=== PATIENT | male | born 1990 | race American Indian/Alaskan Native ===

== ENCOUNTER 2022-03-05 19:46 | Emergency (ER) | payer BC ==
[2022-03-05] MEDS ORDERED: ONDANSETRON 4 MG ODT TAB PO ONE (20:39)
[2022-03-05] MEDS ORDERED: TETANUS,DIPH,PERTUSS(ACELL) VACCINE 0.5 ML SYRINGE IM ONE (20:39)
[2022-03-05] MEDS ORDERED: IBUPROFEN 600 MG TAB PO ONE (20:39)
[2022-03-05] MEDS ORDERED: LIDOCAINE (1%) 10 MG/1 ML VIAL 20 ML MDV INFILTRATI ONE (20:39)
--- NOTE | 2022-03-05 20:52 | XRay Report ---
LEFT HAND 3 VIEW(S) INDICATION / CLINICAL INFORMATION: left hand laceration. laceration from box feeder at work x 1 hr; m ajority of laceration on backside of hand, base of 4th digit; when attempting to perform the lateral image, pat.'s 4th digit kept flexing forward involuntarily; had to use tongue depressor to put 4th di git into position COMPARISON: None available. FINDINGS: BONES / JOINT(S): Minimally displaced fracture of the ulnar aspect of the base of the proximal phalan x of the left index finger possibly due to laceration. No additional fracture. No significant arthrit is. Incidental note of lunotriquetral coalition, a normal anatomic variant. SOFT TISSUES: Soft tissue laceration on the dorsal aspect of the proximal little and ring fingers. ADDITIONAL FINDINGS: None. IMPRESSION: 1. Soft tissue laceration on the dorsal aspect of the little and ring fingers with underlying fractur e/bony laceration of the base of the proximal phalanx. 2. Given the history of flexion deformity of the 4th digit, ring finger extensor tendon injury should be considered. Signer Name: Haily Curry MD Signed: 03/05/2022 8:47 PM Workstation Name: [id number]
--- NOTE | 2022-03-05 22:42 | Emergency Department Report ---
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 Patient states that the bleeding is well controlled at this time but that he is unable to extend his left ring finger due to pain and suspect that he may have injured his tendons. Patient states that he is not up-to-date with his tetanus vaccinations. Patient denies fall, nausea and vomiting, syncope, chest pain or shortness of breath, numbness and tingling or weakness of left hand or lightheadedness. MD Complaint: Injury to:: left, hand (left hand injury, laceration) -: Sudden, hour(s) (2) Other Extremity Injury: Hand: Left (laceration of dorsal left hand) Other Injuries: none Place: home Severity scale (0 -10): 7 Improves With: none Worsens With: movement of extremity Context: direct blow, laceration, injury Associated Symptoms: denies other symptoms. denies: weakness, numbness, neck pain, suspects foreign body, nausea/vomiting, heard/felt popping sensat Treatments Prior to Arrival: bandage - Related Data Previous Rx's Medication Instructions Recorded Last Taken Type HYDROcodone/APAP 5-325 [Addison 1 each PO Q6HR PRN #12 tablet 03/06/22 Unknown Rx 5/325] Ibuprofen [Motrin] 800 mg PO Q8HR PRN #30 tablet 03/06/22 Unknown Rx cephALEXin [Keflex] 500 mg PO Q8HR #30 cap 03/06/22 Unknown Rx Allergies Allergy/AdvReac Type Severity Reaction Status Date / Time No Known Allergies Allergy Verified 03/05/22 20:46 ED Review of Systems ROS: Stated complaint: LEFT HAND LACERATION Other details as noted in HPI Constitutional: denies: chills, fever Eyes: denies: eye pain, eye discharge, vision change ENT: denies: ear pain, throat pain Respiratory: denies: cough, shortness of breath, wheezing Cardiovascular: denies: chest pain, palpitations Endocrine: no symptoms reported Gastrointestinal: denies: abdominal pain, nausea, vomiting, diarrhea Genitourinary: denies: urgency, dysuria Musculoskeletal: arthralgia (Left hand pain due to a bleeding extensive dorsal left hand laceration wound). denies: back pain, joint swelling Skin: other (Bleeding dorsal left hand laceration wound). denies: rash, lesions Neurological: denies: headache, weakness, paresthesias Psychiatric: denies: anxiety, depression Hematological/Lymphatic: denies: easy bleeding, easy bruising ED Past Medical Hx - Past Medical History Previous Medical History?: No - Surgical History Past Surgical History?: No - Social History Smoking Status: Never Smoker - Medications Home Medications: Home Medications Medication Instructions Recorded Confirmed Last Taken Type HYDROcodone/APAP 5-325 [Addison 1 each PO Q6HR PRN #12 tablet 03/06/22 Unknown Rx 5/325] Ibuprofen [Motrin] 800 mg PO Q8HR PRN #30 tablet 03/06/22 Unknown Rx cephALEXin [Keflex] 500 mg PO Q8HR #30 cap 03/06/22 Unknown Rx ED Physical Exam - General Limitations: No Limitations General appearance: alert, in no apparent distress - Head Head exam: Present: atraumatic, normocephalic, normal inspection - Eye Eye exam: Present: normal appearance, PERRL, EOMI Pupils: Present: normal accommodation - ENT ENT exam: Present: normal exam, normal orophraynx, mucous membranes moist, TM's normal bilaterally, normal external ear exam - Neck Neck exam: Present: normal inspection, full ROM. Absent: tenderness - Respiratory Respiratory exam: Present: normal lung sounds bilaterally. Absent: respiratory distress, wheezes, rales, stridor, chest wall tenderness, accessory muscle use, decreased breath sounds, prolonged expiratory - Cardiovascular Cardiovascular Exam: Present: regular rate, normal rhythm, normal heart sounds. Absent: systolic murmur, diastolic murmur, rubs, gallop - GI/Abdominal GI/Abdominal exam: Present: soft, normal bowel sounds. Absent: tenderness, guarding, rebound, hyperactive bowel sounds, hypoactive bowel sounds, organomegaly - Extremities Exam Extremities exam: Present: normal inspection, tenderness (Palpable left hand tenderness due to a 7 cm dorsal left hand laceration with gross extensor tendon abnormality of left ring finger), normal capillary refill. Absent: full ROM (Limited range of motion left hand due to pain), pedal edema, joint swelling, calf tenderness - Back Exam Back exam: Present: normal inspection, full ROM. Absent: tenderness, CVA tenderness (R), CVA tenderness (L), muscle spasm, paraspinal tenderness, vertebral tenderness - Neurological Exam Neurological exam: Present: alert, oriented X3, CN II-XII intact, normal gait, reflexes normal - Psychiatric Psychiatric exam: Present: normal affect, normal mood - Skin Skin exam: Present: warm, dry, intact, normal color, other (Bleeding dorsal left hand 7 cm laceration wound with possible extensor tendon injury on the left ring finger). Absent: rash ED Course Vital Signs 03/05/22 03/05/22 19:50 21:04 Temperature 98.6 F Pulse Rate 81 Respiratory 18 Rate - Laceration /Wound Repair Left Dorsal Hand Wound Location: upper extremity (dorsal left hand laceration) Wound Length (cm): 7 Wound's Depth, Shape: into muscle, linear Wound Explored: contaminated Irrigated w/ Saline (ccs): 300 Betadine Prep?: Yes Anesthesia: 1% Lidocaine Volume Anesthetic (ccs): 8 Wound Debrided: extensive Wound Repaired With: sutures Suture Size/Type: 4:0, proline Number of Sutures: 17 Layer Closure?: Yes Deep Layer Suture Size/Type: 4:0, chromic Number Deep Layer Sutures: 4 Sterile Dressing Applied?: Yes Progress: The wound was cleaned extensively with normal saline and Betadine solutions. Lidocaine 1% solution was used as a digital block for local anesthesia, a total of 8 cc was used around the wound. When anesthesia was fully achieved, the wound was sutured per protocol using Prolene 3-0 sutures for external suture repair, for a total of 17 sutures, and also used chromic 4-0 sutures for internal tendon injury for a total of 4 sutures. The wound was then cleaned extensively normal saline and wound dressed with 4 x 4 gauze and Kerlix. The patient tolerated the procedure well. The left ring finger fracture was splinted with a finger splint. Patient was therefore discharged home on pain medications and antibiotics, and was given a referral to the orthopedic surgeon due to a possible tendon injury. Patient was advised to contact Dr. Baugh's office first thing the morning on Saturday, March 26, 2022 to schedule a follow-up appointment. Patient was advised to return to the ED immediately if symptoms get worse. ED Medical Decision Making - Radiology Data Radiology results: report reviewed, image reviewed [facility] [address] [place] [address] XRay Report Signed Patient: EARL HERNANDEZ R#: [id number] : 1990 Acct:[id number] Age/Sex: 31 / M ADM Date: 03/05/22 Loc: ED Attending Dr: Ordering Physician: BONNIE ROCHA Date of Service: 03/05/22 Procedure(s): XR hand 2V LT Accession Number(s): [id number] cc: BONNIE ROCHA Fluoro Time In Minutes: LEFT HAND 3 VIEW(S) INDICATION / CLINICAL INFORMATION: left hand laceration. 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 FINDINGS: BONES / JOINT(S): Minimally displaced fracture of the ulnar aspect of the base of the proximal phalanx of the left index finger possibly due to laceration. No additional fracture. No significant arthritis. Incidental note of lunotriquetral coalition, a normal anatomic variant. SOFT TISSUES: Soft tissue laceration on the dorsal aspect of the proximal li ttle and ring fingers. ADDITIONAL FINDINGS: None. IMPRESSION: 1. Soft tissue laceration on the dorsal aspect of the little and ring fingers with underlying fracture/bony laceration of the base of the proximal phalanx. 2. Given the history of flexion deformity of the 4th digit, ring finger extensor tendon injury should be considered. Signer Name: Hialy Curry MD Signed: 03/05/2022 8:47 PM Workstation Name: [id number] Transcribed By: DT Dictated By: José Antonio Curry MD Electronically Authenticated By: José Antonio Curry MD Signed Date/Time: 03/05/222046 DD/ 2044 TD/TT: Print Cancel - Medical Decision Making This is a 31-year-old -[place] male with no past medical history presents to the ED with complaint of acute onset left hand pain due to an extensive dorsal left hand laceration wound with left ring finger extension limitations due to a suspected tendon injury after a box spring frame builder that he was using to cut certain boxes accidentally cut his dorsal left right hand extending from the middle dorsal left hand to the left small finger about 2 hours ago. Patient states that the bleeding is well controlled at this time but that he is unable to extend his left ring finger due to pain and suspect that he may have injured his tendons. Patient states that he is not up-to-date with his tetanus vaccinations. In the ED, patient is alert and oriented x3 and is not in distress but appears to be in pain. Patient was treated for pain in the ED, and also received booster tetanus vaccinations. Left hand x-ray showed soft tissue laceration on the dorsal aspect of the little and ring fingers with underlying fracture/bony laceration of the base of the proximal phalanx. In addition given the history of flexion deformity of the 4th digit, ring finger extensor tendon injury should be considered. Patient was also treated in the ED with Ancef 1 g intramuscular injection prophylactic for suspected open fracture. The wound was cleaned extensively with normal saline and Betadine solutions. Lidocaine 1% solution was used as a digital block for local anesthesia, a total of 8 cc was used around the wound. When anesthesia was fully achieved, the wound was sutured per protocol using Prolene 3-0 sutures for external suture repair, for a total of 17 sutures, and also used chromic 4-0 sutures for internal tendon injury for a total of 4 sutures. The wound was then cleaned extensively normal saline and wound dressed with 4 x 4 gauze and Kerlix. The patient tolerated the procedure well. The left ring finger fracture was splinted with a finger splint. Patient was therefore discharged home on pain medications and antibiotics, and was given a referral to the orthopedic surgeon due to a possible tendon injury. Patient was advised to contact Dr. Baugh's office first thing the morning on Saturday, March 26, 2022 to schedule a follow-up appointment. Patient was advised to return to the ED immediately if symptoms get worse. - Differential Diagnosis hand fracture; finger fracture; finger laceration; hand laceration Critical care attestation.: If time is entered above; I have spent that time in minutes in the direct care of this critically ill patient, excluding procedure time. ED Disposition Clinical Impression: Laceration of extensor muscle, fascia and tendon of left ring finger at forearm level, initial encounter Laceration of left hand without foreign body Qualifiers: Encounter type: initial encounter Qualified Code(s): S61.412A - Laceration without foreign body of left hand, initial encounter Closed fracture of phalanx of left ring finger Qualifiers: Encounter type: initial encounter Phalanx: proximal Fracture alignment: nondisplaced Qualified Code(s): S62.645A - Nondisplaced fracture of proximal phalanx of left ring finger, initial encounter for closed fracture Disposition: HOME / SELF CARE / HOMELESS Is pt being admited?: No Does the pt Need Aspirin: No Condition: Stable Instructions: Boxer's Knuckle, Finger Fracture, Adult, [id number], Cast or Splint Care, Adult, [id number], Laceration Care, Adult, [id number], Extensor Carpi Ulnaris Tendon Instability, Sutured Wound Care, [id number] Additional Instructions: Take medication with food, drink plenty of fluids, follow-up with the orthopedic surgeon Dr. Baugh for further evaluation. Contact Dr. Baugh's office first thing the morning on Sunday, March 06, 2022 to schedule a follow-up appointment. Return to the ED immediately if symptoms get worse. Prescriptions: cephALEXin [Keflex] 500 mg PO Q8HR #30 cap Ibuprofen [Motrin] 800 mg PO Q8HR PRN #30 tablet PRN Reason: Pain , Severe (7-10) HYDROcodone/APAP 5-325 [Addison 5/325] 1 each PO Q6HR PRN #12 tablet PRN Reason: Pain Referrals: TAMARA REEDER MD [Primary Care Provider] - 3-5 Days CHADWICK BAUGH MD [Staff Physician] - 3-5 Days Forms: Work/School Release Form(ED) Time of Disposition: 01:03 Print Language: AUSTRIAN
[2022-03-05] MEDS ORDERED: ceFAZolin 1 GM VIAL IM ONE (23:39)
== END 2022-03-06 03:02 | disposition home or self-care (01) ==
LOC: ED 19:46
DX: S62.605A Fracture of unspecified phalanx of left ring finger, initial encounter for closed fracture (principal); S51.812A Laceration without foreign body of left forearm, initial encounter; S61.412A Laceration without foreign body of left hand, initial encounter; W26.8XXA Contact with other sharp object(s), not elsewhere classified, initial encounter; Y93.89 Activity, other specified; Y92.89 Other specified places as the place of occurrence of the external cause; Y99.8 Other external cause status
CPT/HCPCS: 90471; 90715; 99283; J3490; Q0162

== ENCOUNTER 2022-03-16 10:50 | Day surgery (SDC) | payer BC ==
[~2022-03-16 10:50] MED LIST: ceFAZolin/STERILE WATER 2 GM/20 ML SYRINGE IV NR
[2022-03-16] MEDS ORDERED: LACTATED RINGERS 1,000 ML ONE ×2 (11:23→14:58)
[2022-03-16] MEDS ORDERED: BACTERIOSTATIC SODIUM CHLORIDE 0.9% 30 ML VIAL INFILTRATI ONE (11:30)
[2022-03-16] MEDS ORDERED: HYDROmorphone 0.5 MG/0.5 ML INJ IV PRN ×2 (12:23)
[2022-03-16] MEDS ORDERED: ONDANSETRON 4 MG/2 ML INJ IV PRN (12:23)
--- NOTE | 2022-03-16 12:23 | Anesthesia Day of Surgery ---
Anesthesia Day of Surgery - Day of Surgery Patient Examined: Yes Patient H&P Reviewed: Yes Patient is NPO: Yes
--- NOTE | 2022-03-16 12:24 | Anesthesia Consultation ---
Anesthesia Consult and Med Hx Date of service: 03/16/22 - Airway Anesthetic Teeth Evaluation: Chipped ROM Head & Neck: Adequate Mental/Hyoid Distance: Adequate Mallampati Class: Class III Intubation Access Assessment: Probably Good - Pre-Operative Health Status ASA Pre-Surgery Classification: ASA1 Proposed Anesthetic Plan: General - Pulmonary Hx Smoking: No Hx Sleep Apnea: No - Central Nervous System Hx Psychiatric Problems: No - Gastrointestinal Hx Gastroesophageal Reflux Disease: Yes (Rare, dietary) - Hematic Hx Anemia: No Hx Sickle Cell Disease: No - Other Systems Hx Alcohol Use: Yes (OCC.) Hx Substance Use: No Hx Cancer: No
[2022-03-16] MEDS ORDERED: MIDAZOLAM 2 MG/2 ML INJ IV NR (13:00)
[2022-03-16] MEDS ORDERED: LACTATED RINGERS 1,000 ML IV SCH (13:00)
[2022-03-16] MEDS ORDERED: fentaNYL 100 MCG/2 ML INJ ONE (13:25)
[2022-03-16] MEDS ORDERED: propofoL 200 MG/20 ML VIAL IV ONE (13:25)
[2022-03-16] MEDS ORDERED: ONDANSETRON 4 MG/2 ML INJ ONE (13:25)
[2022-03-16] MEDS ORDERED: LIDOCAINE MPF (2%) 20 MG/1 ML VIAL 5 ML ONE (13:25)
[2022-03-16] MEDS ORDERED: SODIUM CHLORIDE 0.9% IRR 1,500 ML BOTTLE IR ONE (14:11)
[2022-03-16] MEDS ORDERED: KETOROLAC 30 MG/1 ML INJ ONE (14:14)
[2022-03-16] MEDS ORDERED: dexAMETHasone 20 MG/5 ML VIAL ONE (14:14)
[2022-03-16] MEDS ORDERED: BUPIVACAINE/PF (0.5%) 5 MG/1 ML 10 ML VIAL INFILTRATI ONE ×2 (14:35→14:36)
--- NOTE | 2022-03-16 14:56 | Procedure Note ---
Date of procedure: 03/16/22 Pre-op diagnosis: Lacerated left fourth and fifth extensor tendons hand Post-op diagnosis: same Procedure: Exploration left hand laceration with repair of lacerated fourth and fifth extensor tendons Procedure The patient was brought to the OR and placed on the OR table in the supine position following induction and intubation anesthesia patient's left upper extremity was prepped and draped in the usual sterile manner a timeout procedure was done to identify the patient and the correct operative site next the the left arm was exsanguinated followed by inflation of the pneumatic tourniquet to 250 mmHg. Patient was noted to have a large dorsal laceration extending from the third metacarpal across of to the distal extent of the fifth sutures were removed next exploration of the wound revealed these findings patient was noted to have an obvious transfers laceration of the fourth extensor tendon as well as a partial slightly oblique laceration of the fifth extensor tendon after thorough irrigation of the wound repair was taken using loupe magnification with 6-0 nylon interrupted this was done for both the fourth and fifth extensor tendons following this the wound was copiously irrigated and the skin incision was closed using 3-0 nylon routine postop dressings were applied patient tolerated procedure there were no complications Anesthesia: MAC Surgeon: CHADWICK CASEY Estimated blood loss: minimal Pathology: none Condition: stable Disposition: PACU
[2022-03-16 17:01] VITALS: BP 126/77
--- NOTE | 2022-03-16 17:17 | Post Anesthesia Evaluation ---
- Post Anesthesia Evaluation Patient Participated: Yes Airway Patent: Yes Stable Respiratory Function: Yes Nausea/Vomiting: No Temp > 96.8F: Yes Pain Manageable: Yes Adequeate Hydration: Yes Anesthesia Complications: No Block Receding Appropriately: Not Applicable Patient on Ventilator: No
== END 2022-03-16 16:45 | disposition home or self-care (01) ==
LOC: OR 10:50
PROVIDERS: ATTEND Orthopaedic Surgery
DX: S66.327A Laceration of extensor muscle, fascia and tendon of left little finger at wrist and hand level, initial encounter (principal); S66.325A Laceration of extensor muscle, fascia and tendon of left ring finger at wrist and hand level, initial encounter; K21.9 Gastro-esophageal reflux disease without esophagitis; Z79.899 Other long term (current) drug therapy; Z72.89 Other problems related to lifestyle; Z98.890 Other specified postprocedural states; X58.XXXA Exposure to other specified factors, initial encounter; Y93.89 Activity, other specified; Y92.89 Other specified places as the place of occurrence of the external cause; Y99.8 Other external cause status
CPT/HCPCS: 26418; J0690; J1100; J1885; J2250; J2405; J2704; J3010; J3490; J7120